=== PATIENT | male | born 1985 | race Caucasian/White ===

== ENCOUNTER 2024-09-20 14:27 | Outpatient (CLI) | payer BC ==
[2024-09-20 15:56] LABS: #Basophils 0.05 10x3/uL (0.0-0.2); #Monocytes 0.57 10x3/uL (0.0-1.1); #Neutrophils 2.81 10x3/uL (1.5-8.4); %Basophils 0.9 % (0.0-2.0); %Eosinophils 1.8 % (0.0-6.0); %Monocytes 10.5 % (0.0-10.0); %Neutrophils 51.6 % (40.0-75.0); Hematocrit 42.7 % (38.8-50.0); Hemoglobin 14.3 g/dL (13.5-17.5); Mean Corpuscular HGB CONC 33.5 g/dL (32.0-36.0); Mean Corpuscular Hemoglobin 30.3 pg (27.0-33.0); Mean Corpuscular Volume 90.5 fL (81.2-95.1); Mean Platelet Volume 11.3 fL (7.4-10.4); Platelet Count 320 10x3/uL (150-450); RBC Distribution Width 11.9 % (11.5-14.5); Red Blood Cell (RBC) Count 4.72 10x6/uL (4.32-5.72); White Blood Cell (WBC) Count 5.45 10x3/uL (3.5-10.5)
[2024-09-20 16:30] LABS: Anion Gap 15 mmol/L (10-20); BUN (Urea Nitrogen) 21 mg/dL (8.9-20.6); Calc. Creatinine Clearance 0 mL/min (70-130); Calcium 10.4 mg/dL (7.8-10.44); Carbon Dioxide 22 mmol/L (22-29); Chloride 107 mmol/L (98-107); Estimated GFR 109; Glucose 95 mg/dL (70-105); Potassium 4.4 mmol/L (3.5-5.1); Sodium 140 mmol/L (136-145)
== END 2024-09-20 14:28 | disposition home or self-care (01) ==
LOC: CSHLAB 14:27
PROVIDERS: ATTEND Surgery
DX: Z01.818 Encounter for other preprocedural examination (principal); K40.20 Bilateral inguinal hernia, without obstruction or gangrene, not specified as recurrent
CPT/HCPCS: 80048; 85025; 93005; 93010

== ENCOUNTER 2024-09-30 06:37 | Day surgery (SDC) | payer BC ==
[2024-09-20 15:03] VITALS: BMI 28.5
[2024-09-30] MEDS ORDERED: Bupivacaine/Epinephrine 0.25% 30 ML VIAL ONE (08:14)
[2024-09-30] MEDS ORDERED: CEFAZOLIN 2 GM VIAL ONE (08:14)
[2024-09-30] MEDS ORDERED: Rocuronium Bromide 10 MG/ML (10ML VIAL) ONE ×2 (08:14→09:49)
[2024-09-30] MEDS ORDERED: Lidocaine 1% PF 5 ML VIAL ONE (08:14)
[2024-09-30] MEDS ORDERED: PROPOFOL 20 ML ONE ×2 (08:15→09:50)
[2024-09-30] MEDS ORDERED: Fentanyl 100 MCG/2 ML VIAL ONE ×2 (08:16→10:06)
[2024-09-30] MEDS ORDERED: Midazolam HCl 2 mg/2 ml Vial ONE (08:46)
[2024-09-30] MEDS ORDERED: Dexamethasone 4 mg/ml Vial ONE (09:24)
[2024-09-30] MEDS ORDERED: Ketorolac Tromethamine 30 MG (1 mL) VIAL ONE (10:20)
[2024-09-30] MEDS ORDERED: SUGAMMADEX SODIUM 200 MG/2 ML VIAL ONE (10:20)
[2024-09-30] MEDS ORDERED: Ondansetron PF 4 MG/2 ML Vial ONE (10:20)
[2024-09-30] MEDS ORDERED: Meperidine HCl/PF 25 MG (1 mL) VIAL ONE (10:52)
[2024-09-30] MEDS ORDERED: HYDROcodone/Acetaminophen 5/325 mg Tablet ONE (11:34)
== END 2024-09-30 12:20 | disposition home or self-care (01) ==
LOC: CSHSDC 06:37
PROVIDERS: ATTEND Surgery
PROC: 0YUA4JZ Supplement Bilateral Inguinal Region with Synthetic Substitute, Percutaneous Endoscopic Approach (ICD-10-PCS; principal; 2024-09-30)
DX: K40.91 Unilateral inguinal hernia, without obstruction or gangrene, recurrent (principal); K40.90 Unilateral inguinal hernia, without obstruction or gangrene, not specified as recurrent; I10 Essential (primary) hypertension; Z98.890 Other specified postprocedural states; Z79.899 Other long term (current) drug therapy
CPT/HCPCS: C1781; J1100; J1885; J2175; J2250; J2405; J2704; J3010; S2900